=== PATIENT | female | born 1955 | race Caucasian/White ===

== ENCOUNTER 2022-02-27 10:01 | Outpatient (CLI) | payer MEDICARE, BC | END 2022-02-27 10:02 | disposition home or self-care (01) | LOC: CSHMAMMO 10:01 | PROVIDERS: ATTEND Surgery | DX: Z12.31 Encounter for screening mammogram for malignant neoplasm of breast (principal) | CPT/HCPCS: 77063; 77067 ==

== ENCOUNTER 2024-08-10 10:54 | Outpatient (CLI) | payer MEDICARE | END 2024-08-10 10:55 | disposition home or self-care (01) | LOC: CSHMAMMO 10:54 | PROVIDERS: ATTEND Surgery | DX: Z12.31 Encounter for screening mammogram for malignant neoplasm of breast (principal) | CPT/HCPCS: 77063; 77067 ==